=== PATIENT | male | born 1960 | race Caucasian/White ===

== ENCOUNTER 2018-10-14 06:57 | Emergency (ER) | payer MEDICAID ==
[~2018-10-14] VITALS: Ht 172.7 cm; Wt 68.2 kg
[2018-10-14] MEDS ORDERED: ondansetron/PF 4mg/2ml inj IV ONE (07:10)
[2018-10-14] MEDS ORDERED: morphine 4 MG/ML inj SYRINge IV ONE (07:10)
[2018-10-14] MEDS ORDERED: iohexol 350MG/ML 100ml bottle IV ONE (07:18)
--- NOTE | 2018-10-14 07:29 | NUR ---
PT VS UPDATED AND STABLE, PT MEDICATED WITH ZOFRAN AND MORPHINE PER ORDERS, PT UPDATED TO PLAN OF CARE, ORIENTED TO ROOM AND CALL LIGHT.
--- NOTE | 2018-10-14 07:31 | NUR ---
PT TO CT VIA ELSI MILLER [employer]IST, PT STABLE
[2018-10-14 07:32] LABS: BASOPHILS % (AUTO) 0.6 % (0-1); EOSINOPHILS # (AUTO) 0.4 X10'3 (0-0.9); EOSINOPHILS % (AUTO) 5.9 % (0-6); HEMATOCRIT 42.1 % (42.0-52.0); LYMPHOCYTES # (AUTO) 1.8 X10'3 (1.1-4.8); LYMPHOCYTES % (AUTO) 24.2 % (21-51); MEAN CORPUSCULAR HEMOGLOBIN 30.2 PG (27.0-31.0); MEAN CORPUSCULAR HGB CONC 33.4 % (33.0-36.5); MEAN CORPUSCULAR VOLUME 90.6 FL (78-98); MEAN PLATELET VOLUME 7.7 FL (7.4-10.4); MONOCYTES # (AUTO) 0.5 X10'3 (0-0.9); MONOCYTES % (AUTO) 6.5 % (2-12); NEUTROPHILS # (AUTO) 4.6 X10'3 (1.8-7.7); NEUTROPHILS % (AUTO) 62.8 % (42-75); PLATELET COUNT 305 X10'3 (140-440); RED BLOOD COUNT 4.64 X10'6 (4.70-6.10); RED CELL DISTRIBUTION WIDTH 12.1 % (11.5-14.5); WHITE BLOOD COUNT 7.3 X10'3 (4.5-11.0)
[2018-10-14 07:46] LABS: PARTIAL THROMBOPLASTIN TIME 26 SECONDS (22-32); PROTHROMBIN TIME 10.3 SECONDS (9.0-12.0)
[2018-10-14 07:48] LABS: ALANINE AMINOTRANSFERASE 26 U/L (12-78); ALBUMIN 3.5 G/DL (3.4-5.0); ALBUMIN/GLOBULIN RATIO 1.1 (1.1-1.5); ALKALINE PHOSPHATASE 72 IU/L (46-116); ANION GAP 9 (8-16); ASPARTATE AMINO TRANSFERASE 24 U/L (10-37); BILIRUBIN,TOTAL 0.4 MG/DL (0.1-1.0); BLOOD UREA NITROGEN 17 MG/DL (7-18); BUN/CREATININE RATIO 15.3 (5.4-32.0); CHLORIDE 107 MMOL/L (99-107); CREATININE 1.11 MG/DL (0.60-1.10); GLUCOSE 108 MG/DL (70-104); POTASSIUM 3.8 MMOL/L (3.5-5.1); SODIUM 143 MMOL/L (135-145); TOTAL PROTEIN 6.8 G/DL (6.4-8.2); eGFR 68 ML/MIN
[2018-10-14] MEDS ORDERED: mag hydrox/Alum hydrox/simeth 30ml oral suspension PO ONE (08:20)
[2018-10-14] MEDS ORDERED: famotidine 20mg tablet PO ONE (08:20)
[2018-10-14 10:30] VITALS: BP 107/77
--- NOTE | 2018-10-14 10:30 | NUR ---
PT REPORTS A LITTLE BIT OF CHEST DISCOMFORT ONLY WITH INSPIRATION, PT AMBULATED WITH NO INCREASE OR CHANGE IN CP, PT AMBULATED WITH STEADY GAIT. DR SHAFER INFORMED
== END 2018-10-14 10:46 | disposition home or self-care (01) ==
LOC: ER 06:57
DX: R06.02 Shortness of breath (principal); R07.9 Chest pain, unspecified; M79.601 Pain in right arm; R20.0 Anesthesia of skin; J44.9 Chronic obstructive pulmonary disease, unspecified; F15.90 Other stimulant use, unspecified, uncomplicated
CPT/HCPCS: 36415; 71045; 71275; 80053; 84484; 85025; 85610; 85730; 93005; 96374; 96375; 99284; J2270; J2405; Q9967

== ENCOUNTER 2022-10-09 18:38 | Emergency (ER) | payer MEDICAID ==
[~2022-10-09] VITALS: Ht 172.7 cm; Wt 55.1 kg
[2022-10-09 18:59] LABS: BASOPHILS % (AUTO) 0.1 % (0-1); EOSINOPHILS % (AUTO) 0 % (0-6); HEMATOCRIT 44.9 % (42.0-52.0); HEMOGLOBIN 15.2 g/dl (14.0-17.9); LYMPHOCYTES # (AUTO) 1.2 X10'3 (1.1-4.8); LYMPHOCYTES % (AUTO) 6.3 % (21-51); MEAN CORPUSCULAR HEMOGLOBIN 29.9 PG (27.0-31.0); MEAN CORPUSCULAR HGB CONC 33.8 g/dL (33.0-36.5); MEAN CORPUSCULAR VOLUME 88.5 FL (78-98); MEAN PLATELET VOLUME 7.5 FL (7.4-10.4); MONOCYTES # (AUTO) 0.9 X10'3 (0-0.9); MONOCYTES % (AUTO) 4.5 % (2-12); NEUTROPHILS % (AUTO) 89.1 % (42-75); PLATELET COUNT 386 X10'3 (140-440); RED BLOOD COUNT 5.08 X10'6 (4.70-6.10); RED CELL DISTRIBUTION WIDTH 12.9 % (11.5-14.5)
[2022-10-09 19:23] LABS: ALANINE AMINOTRANSFERASE 45 U/L (12-78); ALBUMIN 3.1 G/DL (3.4-5.0); ALBUMIN/GLOBULIN RATIO 0.7 (1.1-1.5); ALKALINE PHOSPHATASE 81 IU/L (46-116); ANION GAP 7 (8-16); ASPARTATE AMINO TRANSFERASE 52 U/L (10-37); BILIRUBIN,TOTAL 0.4 MG/DL (0.1-1.0); BLOOD UREA NITROGEN 20 MG/DL (7-18); BUN/CREATININE RATIO 21.1 (5.4-32.0); CHLORIDE 99 MMOL/L (99-107); CREATININE 0.95 MG/DL (0.60-1.10); GLUCOSE 118 MG/DL (70-104); MAGNESIUM 2.1 MG/DL (1.5-2.4); POTASSIUM 4.4 MMOL/L (3.5-5.1); SODIUM 136 MMOL/L (135-145); TOTAL CARBON DIOXIDE 29.7 MMOL/L (24-32); TOTAL PROTEIN 7.6 G/DL (6.4-8.2); eGFR 80 ML/MIN
--- NOTE | 2022-10-09 19:30 | NUR ---
I agree with Ewa Dominguez LPN assessment
[2022-10-09] MEDS ORDERED: azithromycin/NS 500mg/250ml 250 ML IV ONE (22:45)
[2022-10-09] MEDS ORDERED: ipratropium/albuterol 3ml nebule NEB ONE (22:45)
[2022-10-09 23:55] LABS: CLARITY,URINE CLEAR (Clear); COLOR,URINE YELLOW (Yellow); GLUCOSE, URINE NEGATIVE (Neg); KETONES,URINE NEGATIVE (Neg); LEUKOCYTE ESTERASE ,URINE NEGATIVE (Neg); NITRITES, URINE NEGATIVE (Neg); OCCULT BLOOD,URINE NEGATIVE (Neg); PROTEIN,URINE NEGATIVE (Neg); UROBILINOGEN,URINE 0.2 E.U/dL (0.2-1.0)
[2022-10-09 23:58] LABS: UA COLLECTION TYPE CLN CATCH MIDSTREAM
[2022-10-10] MEDS ORDERED: AZIT500T9 PO (00:48)
[2022-10-10 01:03] VITALS: BP 119/81
[2022-10-10] MEDS ORDERED: PRED20TA PO (21:35)
== END 2022-10-10 01:07 | disposition home or self-care (01) ==
LOC: ER 18:40
DX: J18.9 Pneumonia, unspecified organism (principal); Z20.822 Contact with and (suspected) exposure to COVID-19; J44.9 Chronic obstructive pulmonary disease, unspecified; F15.10 Other stimulant abuse, uncomplicated
CPT/HCPCS: 36415; 71045; 80053; 81003; 83735; 83880; 84484; 85025; 87040; 87502; 87503; 87635; 94640; 96365; 99285; C9803; J0456; 94760

== ENCOUNTER 2022-10-10 18:56 | Emergency (ER) | payer MEDICAID ==
[~2022-10-10] VITALS: Ht 172.7 cm; Wt 61.0 kg
[~2022-10-10 18:56] MED LIST: AZIT500T9 PO
[2022-10-10] MEDS ORDERED: ipratropium/albuterol 3ml nebule NEB ONE (19:45)
[2022-10-10] MEDS ORDERED: predniSONE 20 mg tablet PO ONE (20:05)
[2022-10-10 20:32] VITALS: BP 133/88
[2022-10-10] MEDS ORDERED: PRED20TA PO (21:35)
== END 2022-10-10 21:54 | disposition home or self-care (01) ==
LOC: ER 18:57
DX: J18.9 Pneumonia, unspecified organism (principal); J44.1 Chronic obstructive pulmonary disease with (acute) exacerbation; F15.10 Other stimulant abuse, uncomplicated
CPT/HCPCS: 71046; 93005; 94640; 99283; J7512; 94760